=== PATIENT | female | born 1955 | race Caucasian/White ===

== ENCOUNTER → 2020-10-24 08:43 | Outpatient (CLI) | payer BC, SELFPAY ==
--- NOTE | 2020-10-24 08:43 | MR_ITS ---
PROCEDURE INFORMATION: Exam: MR Head Without Contrast Exam date and time: 10/24/2020 8:43 AM Age: 64 years old Clinical indication: Cerebral degeneration; Cognitive impairment; Patient HX: Memory loss, gognitive decline x1yr. No prior. ; Additional info: Memory loss, cognitive decline TECHNIQUE: Imaging protocol: MR of the head without contrast. COMPARISON: No relevant prior studies available. FINDINGS: Brain: No bleed, mass, or shift of structures. Basilar cisterns are normal. No diffusion restricted segments. Pre-pontine region, suprasellar region, and cerebellar angles are normal. Brain is atrophic. Altered/abnormal areas of signal intensity within the periventricular white matter likely the radiographic manifestation of small vessel ischemic disease. Cerebral ventricles: Normal. No ventriculomegaly. Pituitary gland and sella: Sella normal. Bones/joints: Clivus normal. Calvarium is normal marrow signal. Paranasal sinuses: Polyp versus retention cyst within the right maxillary sinus. Mastoid air cells: Normal as visualized. No mastoid effusion. Orbital cavity: Unremarkable. Soft tissues: Soft tissues are unremarkable Other findings: Diploe is normal. Tectum normal. IMPRESSION: 1. No acute intracranial process. 2. Brain is atrophic. 3. Altered/abnormal areas of signal intensity within the periventricular white matter likely the radiographic manifestation of small vessel ischemic disease. Rather extensive
== END ==
PROVIDERS: PCP Nurse Practitioner; Visit Provider Specialist
DX: R41.3 Other amnesia (principal)
CPT/HCPCS: 70551; 95816

== ENCOUNTER → 2021-02-28 14:19 | Outpatient (CLI) | payer MEDICARE, SELFPAY ==
--- NOTE | 2021-02-28 14:22 | CT_ITS ---
PROCEDURE: CT ABDOMEN PELVIS WO CON CLINICAL INDICATION: ABD PAIN ABD PAIN right lower quadrant COMPARISON: No exams were available for comparison TECHNIQUE: Axial images obtained with sagittal and coronal reformats. All CT scans at the facility use one or more dose reduction, viz: automated exposure control, ma/kV adjustment per patient size (including targeted exams where dose is matched to indication, i.e. head), or iterative reconstruction technique. FINDINGS: Lower thorax: The lower lung meyers are clear and there is no pleural fluid. ABDOMEN: Liver: No masses or biliary dilatation. Gallbladder: Nondistended. No radio opaque stones. Pancreas: No masses or peripancreatic fluid collections. Spleen: unremarkable Adrenals: unremarkable Kidneys/ureters: The kidneys are normal in size and there is a benign-appearing cortical cyst lower pole left kidney measuring 3.3 x 3.2 x 3.3 cm. There are tiny nonobstructing calculi in each kidney. ABDOMEN & PELVIS: Stomach bowel: Nondistended. No obvious mass or thickening. The small bowel appears normal. There is moderate diffuse scattered stool and gas seen throughout the colon. There is mild diffuse diverticulosis of the sigmoid colon without evidence of diverticulitis. Peritoneum: No abnormal fluid collections. No obvious inflammatory changes. No free air. Lymph nodes: No enlarged lymph nodes apparent. Vasculature: No evidence of abdominal aortic aneurysm. No retroperitoneal hemorrhage evident. Bones: No acute fracture PELVIS: Reproductive: unremarkable the uterus is slightly enlarged and are 2 small calcifications right side of the uterus likely calcified uterine fibroids. There is no free fluid in the pelvis. Bladder: The urinary bladder is partially decompressed but otherwise appears normal. Appendix: The appendix is not definitely visualized but there are no pericecal inflammatory changes. IMPRESSION: Benign-appearing cortical cyst lower pole left kidney, mild diverticulosis sigmoid colon without diverticulitis, no other significant abdominal or pelvic pathology identified Dictated by: Dr. Lencho Joseph MD 02/28/2021 15:25 Dr. Lencho Joseph MD in [facility] 02/28/2021 15:25
== END ==
PROVIDERS: PCP Nurse Practitioner; Visit Provider Nurse Practitioner
DX: R10.9 Unspecified abdominal pain (principal)
CPT/HCPCS: 74176